=== PATIENT | female | born 1960 | race Caucasian/White ===

== ENCOUNTER 2018-03-21 17:15 | Emergency (ER) | payer OTHER ==
[~2018-03-21] VITALS: Ht 165.1 cm; Wt 93.0 kg
[~2018-03-21 17:15] MED LIST: VICODIN 5/500 505 MG PO
== END 2018-03-21 22:17 | disposition short-term general hospital (02) ==
LOC: ED 17:15
DX: S82.891A Other fracture of right lower leg, initial encounter for closed fracture (principal); W10.8XXA Fall (on) (from) other stairs and steps, initial encounter; Y93.89 Activity, other specified; Y92.89 Other specified places as the place of occurrence of the external cause; Y99.8 Other external cause status

== ENCOUNTER → 2020-10-05 | Outpatient (CLI) | payer OTHER | END | disposition home or self-care (01) | LOC: RAD 09:35 | PROVIDERS: ATTEND Orthopaedic Surgery | DX: M85.841 Other specified disorders of bone density and structure, right hand (principal); M79.89 Other specified soft tissue disorders ==

== ENCOUNTER 2024-12-04 05:51 | Emergency (ER) | payer MEDICARE ==
[~2024-12-04] VITALS: Ht 162.5 cm; Wt 90.7 kg
[2024-12-04] MEDS ORDERED: SODIUM CHLORIDE 0.9% 1,000 ML IV ONE (06:35)
[2024-12-04] MEDS ORDERED: Metoclopramide Hydrochloride 10 MG/2 ML VIAL IV ONE (06:40)
[2024-12-04] MEDS ORDERED: diphenhydrAMINE hydrochloride 50 MG/ML VIAL IV ONE (06:40)
[2024-12-04] MEDS ORDERED: IOHEXOL 300 MG/ML 100 ML VIAL IV ONE (06:40)
[2024-12-04 06:49] LABS: BASO # 0.1 10*3/uL (0.0-0.1); BASO % 0.5 % (0.0-1.0); EOS # 0.1 10*3/uL (0.0-0.4); EOS % 0.5 % (1.0-4.0); MEAN CELL VOLUME 89.5 fl (81.0-99.0); MEAN CORPUSCULAR HGB 30.3 pg (27.0-31.0); MEAN PLATELET VOLUME 10.2 fl (9.6-12.3); MONO # 0.4 10*3/uL (0.1-1.0); MONO % 3.5 % (3.0-9.0); NEUT # 8.7 10*3/uL (2.3-7.9); NEUT % 83.0 % (47.0-73.0); NUCLEATED RED BLOOD CELL 0.0 % (0.0-0.0); NUCLEATED RED BLOOD CELL 0.0 10*3/uL (0.0-0.0); PLATELET COUNT AUTOMATED 298 10*3/uL (130-400); RED CELL DISTRI WIDTH 12.0 % (0-14.5)
[2024-12-04 07:13] LABS: BUN 16 mg/dl (9-23); SGPT/ALT 36 U/L (5-49)
[2024-12-04] MEDS ORDERED: MECLIZINE HCL25 M2 PO (07:32)
[2024-12-04] MEDS ORDERED: LOSARTAN POTASS25 M1 PO (07:32)
[2024-12-04] MEDS ORDERED: FEXOFENADINE H180 M1 PO (07:32)
[2024-12-04] MEDS ORDERED: ZOLPIDEM10 MG PO (07:33)
[2024-12-04] MEDS ORDERED: DULOXETINE HCL20 MG PO (07:33)
[2024-12-04] MEDS ORDERED: PEPCID20 MG PO (10:01)
[2024-12-04] MEDS ORDERED: CARAFATE1 G1 PO (10:01)
== END 2024-12-04 10:16 | disposition home or self-care (01) ==
LOC: ED 05:51
PROVIDERS: Internal Medicine
DX: R10.12 Left upper quadrant pain (principal); Z79.899 Other long term (current) drug therapy